=== PATIENT | male | born 1970 | race African-American/Black ===

== ENCOUNTER 2019-02-16 18:56 | Emergency (ER) | payer SELFPAY ==
[~2019-02-16] VITALS: Ht 182.9 cm; Wt 90.0 kg
[2019-02-16 19:16] VITALS: Ht 182.9 cm; Wt 90.0 kg
[2019-02-16 23:13] VITALS: BP 127/76
[2019-02-17] MEDS ORDERED: MEDROL DOSE PACK4 MG PO (00:11)
[2019-02-17] MEDS ORDERED: AUGMENTIN 875-11 TAB PO (00:11)
== END 2019-02-17 00:19 | disposition home or self-care (01) ==
LOC: D.ER 18:56
DX: J01.90 Acute sinusitis, unspecified (principal)

== ENCOUNTER 2019-03-04 13:47 | Emergency (ER) | payer MEDICAID ==
[~2019-03-04] VITALS: Ht 182.9 cm; Wt 90.9 kg
[~2019-03-04 13:47] MED LIST: AUGMENTIN 875-11 TAB PO; MEDROL DOSE PACK4 MG PO
[2019-03-04 14:13] VITALS: Ht 182.9 cm; Wt 90.9 kg
[2019-03-04] MEDS ORDERED: IMITREX50 MG PO (16:39)
[2019-03-04] MEDS ORDERED: ZOFRAN4 MG PO (16:41)
[2019-03-04 16:51] VITALS: BP 125/76
== END 2019-03-04 16:49 | disposition home or self-care (01) ==
LOC: D.ER 13:47
DX: G43.909 Migraine, unspecified, not intractable, without status migrainosus (principal); R11.10 Vomiting, unspecified